=== PATIENT | male | born 1985 | race Caucasian/White ===

== ENCOUNTER 2018-01-27 14:28 | Emergency (ER) | payer OTHER ==
[~2018-01-27] VITALS: Ht 182.9 cm; Wt 83.9 kg
== END 2018-01-27 21:07 | disposition home or self-care (01) ==
LOC: ER 14:28
DX: R55 Syncope and collapse (principal)

== ENCOUNTER 2022-08-18 01:32 | Emergency (ER) | payer OTHER ==
[~2022-08-18] VITALS: Ht 177.8 cm; Wt 79.4 kg
[2022-08-18] MEDS ORDERED: [UNRECOGNIZED DRUG - OTHER] (01:45)
== END 2022-08-18 05:25 | disposition home or self-care (01) ==
LOC: ER 01:32
DX: M43.6 Torticollis (principal); S00.03XA Contusion of scalp, initial encounter; W22.8XXA Striking against or struck by other objects, initial encounter; Y93.89 Activity, other specified; Y92.89 Other specified places as the place of occurrence of the external cause